=== PATIENT | male | born 1950 | race Caucasian/White ===

== ENCOUNTER → 2016-09-28 | Outpatient (CLI) | payer MEDICARE ==
--- NOTE | 2016-09-28 21:01 | MR ---
EXAMINATION TYPE: MR knee RT wo con DATE OF EXAM: 09/28/2016 COMPARISON: NONE HISTORY: Right knee pain, M 25.561 TECHNIQUE: Multiplanar, multisequence imaging of the right knee is performed without IV contrast. FINDINGS: MEDIAL MENISCUS: Abnormal increased signal is present within the posterior horn of the medial meniscu s, the meniscus appears attenuated, linear increased signal extends to the articular surface at the p osterior horn and body. LATERAL MENISCUS: Intact CRUCIATE LIGAMENTS: Some increased signal is present within the distribution of the anterior cruciate ligament which could be due to strain or partial tear in the posterior cruciate ligament is intact COLLATERAL LIGAMENTS: The medial collateral ligament and lateral collateral ligament complex are inta ct and unremarkable. EXTENSOR MECHANISM: Visualized quadriceps and patellar tendons are intact. EFFUSION: No significant suprapatellar joint effusion. POPLITEAL CYST: Small semimembranosus gastrocnemius cyst is present, cystic fluid posterior to the p roximal tibia medially could be due to small ganglion cyst, possible meniscal cyst at the posterior a spect of the posterior horn of the medial meniscus TRICOMPARTMENT SPACES: Joint space loss is greatest in the medial compartment CARTILAGE: Grade III chondromalacia present in the medial compartment, grade 2 to grade III chondroma lacia posterior patella BONE MARROW SIGNAL: No focal abnormal marrow signal is appreciated. OTHER: Subcutaneous edema changes are present. Some fluid signal present near the pes anserine compl ex possibly due to some local inflammatory change or bursitis. IMPRESSION: Osteoarthritis. Tear of the posterior horn of the medial meniscus. Additional findings above.
== END | disposition home or self-care (01) ==
LOC: RADMRIMAIN 18:36
PROVIDERS: ATTEND Family Medicine
DX: S83.241A Other tear of medial meniscus, current injury, right knee, initial encounter (principal); M17.11 Unilateral primary osteoarthritis, right knee

== ENCOUNTER → 2017-12-19 | Outpatient (CLI) | payer MEDICARE | END | disposition home or self-care (01) | LOC: LABWHC1 16:55 | PROVIDERS: ATTEND Urology | DX: C61 Malignant neoplasm of prostate (principal) | CPT/HCPCS: 36415; 84153 ==

== ENCOUNTER → 2018-06-17 | Outpatient (CLI) | payer MEDICARE | END | disposition home or self-care (01) | LOC: LABWHC1 12:24 | PROVIDERS: ATTEND Urology | DX: C61 Malignant neoplasm of prostate (principal) | CPT/HCPCS: 36415; 84153 ==

== ENCOUNTER → 2019-01-14 | Outpatient (CLI) | payer MEDICARE ==
[2019-01-14 17:48] LABS: T4, Free (Free Thyroxine) 1.2 ng/dL (0.80-1.80)
== END ==
LOC: LABWHC1 09:38
PROVIDERS: ATTEND Internal Medicine
DX: C61 Malignant neoplasm of prostate (principal); C73 Malignant neoplasm of thyroid gland
CPT/HCPCS: 36415; 84153; 84432; 84439; 84443; 86800

== ENCOUNTER → 2019-07-14 | Outpatient (CLI) | payer MEDICARE ==
[2019-07-14 17:42] LABS: T4, Free (Free Thyroxine) 1.8 ng/dL (0.80-1.80)
== END | disposition home or self-care (01) ==
LOC: LABWHC1 10:08
PROVIDERS: ATTEND Internal Medicine
DX: E89.0 Postprocedural hypothyroidism (principal)
CPT/HCPCS: 36415; 84439; 84443

== ENCOUNTER → 2020-01-18 | Outpatient (CLI) | payer MEDICARE | END | disposition home or self-care (01) | LOC: LABWHC1 11:58 | PROVIDERS: ATTEND Urology | DX: C61 Malignant neoplasm of prostate (principal) | CPT/HCPCS: 36415; 84153 ==

== ENCOUNTER → 2020-02-01 | Outpatient (CLI) | payer MEDICARE ==
[2020-02-01 11:51] LABS: Basophils % (A) 0 %; Eosinophils # (A) 0.1 k/uL (0-0.7); Eosinophils % (A) 3 %; HCT 48.1 % (39.0-53.0); HGB 15.6 gm/dL (13.0-17.5); Lymphocytes % (A) 26 %; MCHC 32.5 g/dL (31.0-37.0); MCV 92.2 fL (80.0-100.0); Monocytes # (A) 0.4 k/uL (0-1.0); Monocytes % (A) 10 %; Neutrophils # (A) 2.3 k/uL (1.3-7.7); Neutrophils % (A) 58 %; Platelet Count 212 k/uL (150-450); RBC 5.21 m/uL (4.30-5.90); RDW 12.8 % (11.5-15.5); WBC 3.9 k/uL (3.8-10.6)
[2020-02-01 19:11] LABS: Albumin 4.2 g/dL (3.80-4.90); Albumin/Globulin Ratio 1.91 (1.60-3.17); Anion Gap 2.4 mmol/L (4.00-12.00); Calcium 9.2 mg/dL (8.7-10.3); Carbon Dioxide 30.6 mmol/L (21.6-31.8); Chol/HDL Ratio 4.7; Globulin 2.2 g/dL (1.6-3.3); LDL Cholesterol,Calculated 134.6 mg/dL (0.0-131.0); Non-African American GFR(CKD) 75.9 (60.0-200.0); Potassium 4.7 mmol/L (3.5-5.5); Total Bilirubin 0.5 mg/dL (0.3-1.2); Total Protein 6.4 g/dL (6.2-8.2); VLDL Calculation 24.4 mg/dL (5.00-40.00)
[2020-02-01 19:18] LABS: T4, Free (Free Thyroxine) 2.1 ng/dL (0.80-1.80)
== END | disposition home or self-care (01) ==
LOC: LABWHC1 10:49
PROVIDERS: ATTEND Physician Assistant
DX: Z00.00 Encounter for general adult medical examination without abnormal findings (principal); E78.00 Pure hypercholesterolemia, unspecified; E03.9 Hypothyroidism, unspecified
CPT/HCPCS: 36415; 80053; 80061; 84439; 84443; 84481; 85025

== ENCOUNTER → 2020-07-29 | Outpatient (CLI) | payer MEDICARE ==
[2020-07-29 17:12] LABS: T4, Free (Free Thyroxine) 1.4 ng/dL (0.80-1.80)
== END | disposition home or self-care (01) ==
LOC: LABWHC1 09:59
PROVIDERS: ATTEND Internal Medicine
DX: C73 Malignant neoplasm of thyroid gland (principal); E89.0 Postprocedural hypothyroidism; E55.9 Vitamin D deficiency, unspecified
CPT/HCPCS: 36415; 82306; 84432; 84439; 84443; 86800

== ENCOUNTER 2020-08-12 16:59 | Observation (INO) | payer MEDICARE ==
[2020-08-12] MEDS ORDERED: NITROGLYCERIN OINT 1 INCH/GM PACKET TOPICAL STA (17:21)
[2020-08-12] MEDS ORDERED: METOCLOPRAMIDE 5 MG/ML 2 ML VIAL IVP STA (17:21)
[2020-08-12] MEDS ORDERED: ASPIRIN 81 MG PO STA (17:21)
--- NOTE | 2020-08-12 17:24 | ED ---
General Adult HPI - General Chief complaint: Chest Pain Stated complaint: Chest pain Time Seen by Provider: 08/12/20 17:03 Source: patient, EMS, RN notes reviewed Mode of arrival: EMS Limitations: no limitations - History of Present Illness Initial comments: Patient is a pleasant 70-year-old male presenting to the emergency Department with complaints of chest discomfort. Onset of symptoms was yesterday evening. Discomfort is mild and described as an ache. No associated dyspnea. Patient has had some nausea. Patient was a little bit sweaty earlier. No history of similar symptoms previously. No radiation of pain. No leg pain or leg swelling. - Related Data Home Medications Medication Instructions Recorded Confirmed Levothyroxine Sodium [Synthroid] 150 mcg PO DAILY 08/12/20 08/12/20 Naproxen Sodium [Aleve] 220 mg PO BID PRN 08/12/20 08/12/20 Allergies Allergy/AdvReac Type Severity Reaction Status Date / Time No Known Allergies Allergy Verified 08/12/20 18:24 Review of Systems ROS Statement: Those systems with pertinent positive or pertinent negative responses have been documented in the HPI. ROS Other: All systems not noted in ROS Statement are negative. Constitutional: Denies: fever Eyes: Denies: eye pain ENT: Denies: ear pain Respiratory: Denies: cough Cardiovascular: Reports: chest pain Endocrine: Denies: fatigue Gastrointestinal: Reports: nausea. Denies: abdominal pain Genitourinary: Denies: dysuria Musculoskeletal: Denies: back pain Skin: Denies: rash Neurological: Reports: headache Past Medical History Past Medical History: Cancer, Osteoarthritis (OA) Additional Past Medical History / Comment(s): wound left leg History of Any Multi-Drug Resistant Organisms: None Reported Past Surgical History: Joint Replacement Additional Past Surgical History / Comment(s): thyroidectomy for ca of the thyroid Past Anesthesia/Blood Transfusion Reactions: No Reported Reaction Past Psychological History: No Psychological Hx Reported Smoking Status: Never smoker Past Alcohol Use History: Occasional Past Drug Use History: None Reported - Past Family History Mother Family Medical History: No Reported History Father Family Medical History: Diabetes Mellitus General Exam Limitations: no limitations General appearance: alert, in no apparent distress Head exam: Present: atraumatic Eye exam: Present: normal appearance, PERRL, EOMI ENT exam: Present: normal oropharynx Neck exam: Present: normal inspection Respiratory exam: Present: normal lung sounds bilaterally Cardiovascular Exam: Present: regular rate, normal rhythm Expanded Peripheral pulses: 2+: Radial (R), Radial (L), Dorsalis Pedis (R), Dorsalis Pedis (L) GI/Abdominal exam: Present: soft. Absent: tenderness Extremities exam: Present: normal inspection. Absent: pedal edema, calf tenderness Neurological exam: Present: alert Psychiatric exam: Present: normal affect, normal mood Skin exam: Present: normal color Course Vital Signs 08/12/20 08/12/20 08/12/20 17:02 18:41 18:47 Temperature 98.0 F Pulse Rate 64 59 L 59 L Respiratory 16 16 16 Rate Blood Pressure 161/65 121/84 128/70 O2 Sat by Pulse 97 94 L 95 Oximetry EKG Findings - EKG Comments: EKG Findings:: Normal sinus rhythm with rate of 64. OH 194. QRS 94. QT 400. QTc 412. Normal axis. Normal QRS. No acute ST change. Medical Decision Making - Medical Decision Making Patient reevaluated and improved. Discomfort mild at this time. Patient and family updated on results and plan. Case was discussed with Dr. Mcarthur, covering for Dr. Olsen, who will admit. - Lab Data Result diagrams: 08/12/20 17:28 08/12/20 17:28 Lab Results 08/12/20 08/12/20 08/12/20 Range/Units 17:28 17:28 17:28 WBC 5.1 (3.8-10.6) k/uL RBC 4.81 (4.30-5.90) m/uL Hgb 11.5 L (13.0-17.5) gm/dL Hct 44.4 (39.0-53.0) % MCV 92.3 (80.0-100.0) fL MCH 23.8 L (25.0-35.0) pg MCHC 25.8 L (31.0-37.0) g/dL RDW 13.1 (11.5-15.5) % Plt Count 192 (150-450) k/uL MPV 7.3 Neutrophils % 61 % Lymphocytes % 24 % Monocytes % 9 % Eosinophils % 2 % Basophils % 1 % Neutrophils # 3.2 (1.3-7.7) k/uL Lymphocytes # 1.2 (1.0-4.8) k/uL Monocytes # 0.5 (0-1.0) k/uL Eosinophils # 0.1 (0-0.7) k/uL Basophils # 0.0 (0-0.2) k/uL PT 10.2 (9.0-12.0) sec INR 0.9 (<1.2) APTT 22.7 (22.0-30.0) sec Sodium 137 (137-145) mmol/L Potassium 4.3 (3.5-5.1) mmol/L Chloride 104 (98-107) mmol/L Carbon Dioxide 24 (22-30) mmol/L Anion Gap 9 mmol/L BUN 19 (9-20) mg/dL Creatinine 0.82 (0.66-1.25) mg/dL Est GFR (CKD-EPI)AfAm >90 (>60 ml/min/1.73 sqM) Est GFR (CKD-EPI)NonAf 89 (>60 ml/min/1.73 sqM) Glucose 91 (74-99) mg/dL Calcium 9.3 (8.4-10.2) mg/dL Magnesium 2.0 (1.6-2.3) mg/dL Total Bilirubin 0.5 (0.2-1.3) mg/dL AST 32 (17-59) U/L ALT 36 (4-49) U/L Alkaline Phosphatase 47 (38-126) U/L Troponin I (0.000-0.034) ng/mL Total Protein 7.2 (6.3-8.2) g/dL Albumin 4.3 (3.5-5.0) g/dL 08/12/20 Range/Units 17:28 WBC (3.8-10.6) k/uL RBC (4.30-5.90) m/uL Hgb (13.0-17.5) gm/dL Hct (39.0-53.0) % MCV (80.0-100.0) fL MCH (25.0-35.0) pg MCHC (31.0-37.0) g/dL RDW (11.5-15.5) % Plt Count (150-450) k/uL MPV Neutrophils % % Lymphocytes % % Monocytes % % Eosinophils % % Basophils % % Neutrophils # (1.3-7.7) k/uL Lymphocytes # (1.0-4.8) k/uL Monocytes # (0-1.0) k/uL Eosinophils # (0-0.7) k/uL Basophils # (0-0.2) k/uL PT (9.0-12.0) sec INR (<1.2) APTT (22.0-30.0) sec Sodium (137-145) mmol/L Potassium (3.5-5.1) mmol/L Chloride (98-107) mmol/L Carbon Dioxide (22-30) mmol/L Anion Gap mmol/L BUN (9-20) mg/dL Creatinine (0.66-1.25) mg/dL Est GFR (CKD-EPI)AfAm (>60 ml/min/1.73 sqM) Est GFR (CKD-EPI)NonAf (>60 ml/min/1.73 sqM) Glucose (74-99) mg/dL Calcium (8.4-10.2) mg/dL Magnesium (1.6-2.3) mg/dL Total Bilirubin (0.2-1.3) mg/dL AST (17-59) U/L ALT (4-49) U/L Alkaline Phosphatase (38-126) U/L Troponin I <0.012 (0.000-0.034) ng/mL Total Protein (6.3-8.2) g/dL Albumin (3.5-5.0) g/dL - Radiology Data Radiology results: report reviewed (Computed tomography scan of the brain shows no acute hemorrhage, shift or mass effect. Atrophy.), image reviewed Disposition Clinical Impression: Chest pain Disposition: ADMITTED IP TO THIS HOSP Is patient prescribed a controlled substance at d/c from ED?: No Referrals: Yoel Olsen MD [Primary Care Provider] - 1-2 days Decision Time: 19:35
[2020-08-12 17:38] LABS: Basophils % (A) 1 %; Eosinophils # (A) 0.1 k/uL (0-0.7); Eosinophils % (A) 2 %; HCT 44.4 % (39.0-53.0); HGB 11.5 gm/dL (13.0-17.5); Lymphocytes # (A) 1.2 k/uL (1.0-4.8); Lymphocytes % (A) 24 %; MCH 23.8 pg (25.0-35.0); MCHC 25.8 g/dL (31.0-37.0); MCV 92.3 fL (80.0-100.0); Mean Platelet Volume 7.3; Monocytes # (A) 0.5 k/uL (0-1.0); Monocytes % (A) 9 %; Neutrophils # (A) 3.2 k/uL (1.3-7.7); Neutrophils % (A) 61 %; Platelet Count 192 k/uL (150-450); RBC 4.81 m/uL (4.30-5.90); RDW 13.1 % (11.5-15.5); WBC 5.1 k/uL (3.8-10.6)
[2020-08-12 17:50] LABS: ALT 36 U/L (4-49); AST 32 U/L (17-59); African American GFR (CKD) >90 (>60 ml/min/1.73 sqM); Albumin 4.3 g/dL (3.5-5.0); Alkaline Phosphatase 47 U/L (38-126); Anion Gap 9 mmol/L; Blood Urea Nitrogen 19 mg/dL (9-20); Calcium 9.3 mg/dL (8.4-10.2); Carbon Dioxide 24 mmol/L (22-30); Chloride 104 mmol/L (98-107); Glucose 91 mg/dL (74-99); Non-African American GFR(CKD) 89 (>60 ml/min/1.73 sqM); Potassium 4.3 mmol/L (3.5-5.1); Sodium 137 mmol/L (137-145); Total Bilirubin 0.5 mg/dL (0.2-1.3); Total Protein 7.2 g/dL (6.3-8.2)
[2020-08-12 17:55] LABS: INR 0.9 (<1.2); Partial Thromboplastin Time 22.7 sec (22.0-30.0); Prothrombin Time 10.2 sec (9.0-12.0)
--- NOTE | 2020-08-12 19:11 | CT ---
EXAMINATION TYPE: CT brain wo con DATE OF EXAM: 08/12/2020 COMPARISON: No prior CT at resident for comparison HISTORY: 70-year-old male with headache nausea. No injury. TECHNIQUE: CT scan of the head was performed without contrast. CT DLP: 1143.4 mGycm Automated exposure control for dose reduction was used. FINDINGS: No evidence of acute intracranial hemorrhage, midline shift or mass effect. Malik-white matter differentiation is preserved. Posterior fossa is acutely unremarkable. There is brain volume atrophy. There are microangiopathic changes and tiny by lateral basal ganglia lacunar infarcts. There is mucosal thickening in the ethmoidal and sphenoid sinuses. Mastoid air cells are adequately e valuated. No acute orbital or osseous abnormality. IMPRESSION: NO ACUTE INTRACRANIAL HEMORRHAGE, MIDLINE SHIFT OR MASS EFFECT. MICROANGIOPATHIC CHANGES AND TINY BILATERAL BASAL GANGLIA LACUNAR INFARCTS. BRAIN VOLUME ATROPHY. SOFT TISSUE THICKENING IN THE PARANASAL SINUSES COULD BE ON THE BASIS OF CAUSAL SINUS DISEASE.
[2020-08-12] MEDS ORDERED: NITROGLYCERIN SL TABS 0.4 MG TAB SUBLINGUAL PRN (19:36)
--- NOTE | 2020-08-12 20:39 | XR ---
EXAMINATION TYPE: XR chest 2V DATE OF EXAM: 08/12/2020 COMPARISON: NONE HISTORY: 70-year-old male with chest pain TECHNIQUE: Frontal and lateral views of the chest are obtained. FINDINGS: Few nodular opacities are demonstrated in the lung bases. The interstitium is mildly prominent. No pneumothorax or pleural effusion. Cardiomediastinal silhouette is within normal limit. No acute osseous abnormality. IMPRESSION: 1. Nodular opacities in the lung bases the larger nodule measures 1.1 cm in the left lower lobe. Ches t CT with contrast recommended could be performed on outpatient basis. 2. Mild prominence of the interstitium could be on the basis of atypical infection, inflammation.
[2020-08-12] MEDS ORDERED: HYDROcodone/APAP 5-325MG 1 EACH TAB PO PRN (21:51)
--- NOTE | 2020-08-12 23:11 | P.HPIM ---
History of Present Illness H&P Date: 08/12/20 Chief Complaint: Chest pain 70-year-old male with hypothyroidism Patient comes in for right-sided chest pain. 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 He started feeling right-sided chest pain at night not associated with any dizziness lightheadedness nausea vomiting or shortness of breath no excessive sweating or palpitations. He had a rough night all night and then in the morning pain persisted not related to any activity again no associated other symptoms but eventually he decided to come in for evaluation concerned about his heart. He otherwise denies any anginal symptoms denies any limitations of his activity by any chest pain or shortness of breath at baseline. Patient denies having any cardiac workup in the past he doesn't recall having any stress test or left heart cath Patient also reported restless leg toward the late evening that bothers him in preventing him from getting good night sleep. He never seeks medical attention for this been going on for couple months. Of note he does have acute anemia which is new compared to his baseline blood work from 6 months ago he otherwise denies any GI bleeding at this time denies any melena. He claims that he had regular colonoscopies in usually they find benign polyps and he gets those every 5 years. Patient also reported history of hypothyroid for which his Synthroid been adjusted by his doctors he went on 125 g for couple months and then now switched back to 150 which is been on its before that he did some thyroid function tests few days ago and his TSH was high still within normal limits however due to his history of thyroid cancer that should be closer to 0 so his doctor has adjusted his thyroid hormone and will follow up outpatient Patient also reported some new onset headache and he claims that he never gets headaches this bad however he denies any associated focal neuro deficits. He had a hectic computed tomography scan done in the ED which suggested microangiop athic disease and tiny possible lacunar infarcts in basal ganglia he again denies any nausea vomiting or any blurry vision he denies any other focal neuro deficits he claims that his headache has resolved now Review of Systems Pertinent positives as noted in HPI. All other systems were reviewed and are negative Past Medical History Past Medical History: Cancer Additional Past Medical History / Comment(s): Hypothyroid, history of thyroid cancer History of Any Multi-Drug Resistant Organisms: None Reported Past Surgical History: Joint Replacement Additional Past Surgical History / Comment(s): thyroidectomy for ca of the thyroid Past Anesthesia/Blood Transfusion Reactions: No Reported Reaction Past Psychological History: No Psychological Hx Reported Smoking Status: Never smoker Past Alcohol Use History: Occasional Past Drug Use History: None Reported - Past Family History Mother Family Medical History: No Reported History Father Family Medical History: Diabetes Mellitus Medications and Allergies Home Medications Medication Instructions Recorded Confirmed Type Levothyroxine Sodium [Synthroid] 150 mcg PO DAILY 08/12/20 08/12/20 History Naproxen Sodium [Aleve] 220 mg PO BID PRN 08/12/20 08/12/20 History Allergies Allergy/AdvReac Type Severity Reaction Status Date / Time No Known Allergies Allergy Verified 08/12/20 18:24 Physical Exam Vitals: Vital Signs Temp Pulse Resp BP Pulse Ox 08/12/20 18:47 59 L 16 128/70 95 08/12/20 18:41 59 L 16 121/84 94 L 08/12/20 17:02 98.0 F 64 16 161/65 97 Intake and Output 08/12/20 08/12/20 08/12/20 06:59 14:59 22:59 Other: Weight 86.636 kg Constitutional: No acute distress, conversant, pleasant Eyes: Anicteric sclerae, moist conjunctiva, Pupils equal round reactive to light ENMT: NC/AT Oropharynx clear, no erythema, or exudates Neck: Supple, FROM, no masses, or JVD No carotid bruits No thyromegaly Lungs: Clear to auscultation Clear to percussion Normal respiratory effort, no accessory muscle use Cardiovascular: Heart regular in rate and rhythm, No murmurs, gallops, or rubs No peripheral edema Abdominal: Soft Nontender, no guarding, rebound or rigidity Abdomen moving with respiration Normoactive bowel sounds No hepatomegaly, No splenomegaly No palpable mass No abdominal wall hernia noted Skin: Normal temperature, tone, texture, turgor No induration No subcutaneous nodules multiple skin tags, blisters over face and forearm, 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 Extremities: No digital cyanosis No clubbing Pedal pulses intact and symmetrical Radial pulses intact and symmetrical No calf tenderness Psychiatric: Alert and oriented to person, place and time Appropriate affect fair judgement Neuro Muscles Strength 5/5 in all 4 extremities Sensation to light touch grossly present throughout Cranial nerves II-XII grossly intact No focal sensory deficits Lymphatics: no palpable cervical or supraclavicular , or inguinal lymph nodes Results CBC & Chem 7: 08/12/20 17:28 08/12/20 17:28 Labs: Abnormal Lab Results - Last 24 Hours (Table) 08/12/20 Range/Units 17:28 Hgb 11.5 L (13.0-17.5) gm/dL MCH 23.8 L (25.0-35.0) pg MCHC 25.8 L (31.0-37.0) g/dL Thrombosis Risk Factor Assmnt - Choose All That Apply Each Risk Factor Represents 2 Points: Age 61-74 years Thrombosis Risk Factor Assessment Total Risk Factor Score: 2 Thrombosis Risk Factor Assessment Level: Low Risk Assessment and Plan Assessment: Atypical chest pain Trend troponins Cardiac monitoring Monitor vital signs Nitro for chest pain Continue aspirin and statin Cardiology consult EKG no acute ST changes Restless leg syndrome Acute anemia Patient denies any GI bleeding Check iron studies and ferritin A ferritin less than 75 consider iron replacement to treat his anemia and restless leg syndrome Ferritin is more than 75 will defer to outpatient evaluation options to treat his restless leg syndrome could be Requip, [place], gabapentin, among others. Pros and cons should be discussed with the patient Patient claims to be up-to-date on regular colonoscopies no history of malignancy. He reports history of multiple polyps usually benign Hypothyroidism with history of thyroid cancer TSH is within normal limits however is elevated for his history of thyroid cancer, goal usually is close to 0 Patient Synthroid was adjusted by his primary care physician up to 150 g continue to follow up outpatient Headache currently resolved no focal neuro deficits Incidental finding of tiny lacunar infarct in basal ganglia on computed tomography scan of the head Await neuro consult Neurochecks every 2 hours CODE STATUS: Full code DVT prophylaxis: Mechanical Discussed with: Patient, ER, RN Anticipated length of stay less than than [address]: Home A total of 75 minutes was spent on the care of this complex patient more than 50% of the time was spent in counseling and care coordination.
[2020-08-13] MEDS ORDERED: HEPARIN SODIUM,PORCINE/PF 5,000 UNIT/0.5 ML SYRINGE SQ SCH
[2020-08-13] MEDS: NITROGLYCERIN OINT 1 INCH/GM PACKET TOPICAL SCH ×2 (01:58→05:10)
[2020-08-13] MEDS ORDERED: LEVOTHYROXINE 75 MCG TAB PO SCH (06:30)
[2020-08-13 07:49] VITALS: RESP 18
[2020-08-13] MEDS ORDERED: ASPIRIN 325 MG TAB PO SCH (09:00)
[2020-08-13] MEDS ORDERED: ASPIRIN 81 MG PO SCH (09:00)
--- NOTE | 2020-08-13 09:26 | CONS ---
CONSULTATION Mr. Damon is a 70-year-old male with no prior documented history of coronary artery disease who presented to the emergency room with symptoms of chest discomfort yesterday. He was splitting wood and subsequently started complaining of right-sided chest discomfort. The discomfort has some positional pattern and respirophasic pattern to it, but he had a headache with and came into the emergency room and subsequently admitted. He is pain free at this time. He is usually active physically and he has no exertional chest pain. He denies any dizziness or palpitation. He denies any PND, orthopnea, or peripheral edema. He has no prior documented history of cardiac disease nor cardiac workup. He has no history of hypertension, hyperlipidemia, he is nondiabetic, nonsmoker. MEDICATION: At home included Aleve and Synthroid 0.15 mg daily. REVIEW OF SYSTEMS: RESPIRATORY SYSTEM: He has no documented history of asthma, emphysema or bronchitis. GI SYSTEM: No recent GI bleeding. No peptic ulcer disease. SYSTEM: No dysuria or hematuria. NERVOUS SYSTEM: No history of stroke or seizure. PHYSICAL EXAMINATION: GENERAL: A 70-year-old male, alert, oriented, no apparent distress. VITAL SIGNS: Blood pressure 120/60 with a heart in the 60s. HEENT: Head is normocephalic, eyes; sclerae anicteric. NECK: Good carotid upstroke, no bruit, no jugular venous distention. LUNGS: Clear to auscultation. HEART: Regular rate and rhythm, S1 and S2, no S3 or S4, no murmur or rub. ABDOMEN: Soft and nontender, positive bowel wounds, no organomegaly. EXTREMITIES: No edema. Intact distal pulses. LAB DATA: Lab data revealed troponin less than 0.012 for 3 samples. BUN creatinine 19 and 0.8, potassium 4.3, hemoglobin of 11.5. EKG revealed a sinus mechanism, normal axis and intervals. No acute changes. Chest x-ray shows no acute infiltrate with a nodular opacity at the lung base measuring 1.1 cm. He had a brain CT done that revealed no acute hemorrhage with microangiopathic changes and tiny bilateral basal ganglia lacunar infarct. IMPRESSION: 1. Chest discomfort. Has atypical features for ischemic heart disease. Probably musculoskeletal in etiology. 2. Small nodule on the x-ray in a patient who is a nonsmoker. RECOMMENDATION: From the cardiac standpoint, I will stop the nitroglycerin paste. I will obtain echocardiogram with Doppler. If there is no segmental wall motion abnormality, he should be able to be discharged home and obtain a stress test as an outpatient. I have discussed those findings with the patient and he is in full understanding and agreement. Thank you for this consult. We will follow with you. SEBASTIEN / BLAKE: [id number] /
[2020-08-13 10:06] LABS: Chol/HDL Ratio 5.17; LDL Cholesterol,Calculated 156.8 mg/dL (0.0-131.0); VLDL Calculation 39.2 mg/dL (5.00-40.00)
--- NOTE | 2020-08-13 11:38 | P.CNNES ---
History of Present Illness Consult date: 08/13/20 History of Present Illness: The patient is a 70-year-old male who is seen in neurologic consultation on August 13, 2020, via teleneurology. The patient is being seen in neurologic consultation because of abnormalities on his CT scan of the brain. 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 The patient reports no neurological symptoms. He is not aware that he has had any type of cerebral ischemia. The patient reports coming into the emergency department because of "pulled, strained muscle across my heart". Patient reports that he had been doing a lot of heavy work the day prior to the onset of the symptoms. He reports feeling pain on the right side of his chest. He then began to experience a severe headache. He says that is very uncommon for him to the headache. He denies any weakness in his arms or legs. He does report nausea associated with headache. There is no vomiting. There is no change in vision or speech. She denies shortness of breath. He denies radiation of the pain into his arms. There is no weakness or paresthesias. No difficulty swallowing. The patient states that his symptoms lasted for approximately 4 hours. He had no difficulty with ambulation. He describes the pain as an "irritable" sensation. It was then 9, on a scale from 0-10. The patient denies a history of similar symptoms. He denies a history of stroke. Past Medical History Past Medical History: Cancer Additional Past Medical History / Comment(s): Hypothyroid, history of thyroid cancer History of Any Multi-Drug Resistant Organisms: None Reported Past Surgical History: Joint Replacement Additional Past Surgical History / Comment(s): thyroidectomy for ca of the thyroid Past Anesthesia/Blood Transfusion Reactions: No Reported Reaction Past Psychological History: No Psychological Hx Reported Smoking Status: Never smoker Past Alcohol Use History: Occasional Past Drug Use History: None Reported - Past Family History Mother Family Medical History: No Reported History Father Family Medical History: Diabetes Mellitus Medications and Allergies Home Medications Medication Instructions Recorded Confirmed Type Levothyroxine Sodium [Synthroid] 150 mcg PO DAILY 08/12/20 08/12/20 History Naproxen Sodium [Aleve] 220 mg PO BID PRN 08/12/20 08/12/20 History Allergies Allergy/AdvReac Type Severity Reaction Status Date / Time No Known Allergies Allergy Verified 08/12/20 18:24 Physical Examination - Vital Signs Vital Signs: Vital Signs Temp Pulse Pulse Resp BP BP Pulse Ox 08/13/20 07:50 54 L 18 08/13/20 07:00 97.3 F L 54 L 18 94/56 99 08/13/20 02:00 97.6 F 61 16 120/63 95 08/12/20 22:25 98.8 F 77 17 111/77 97 08/12/20 18:47 59 L 16 128/70 95 08/12/20 18:41 59 L 16 121/84 94 L 08/12/20 17:02 98.0 F 64 16 161/65 97 Intake and Output 08/12/20 08/13/20 08/13/20 22:59 06:59 14:59 Other: Voiding Method Toilet Toilet # Voids 2 1 1 Weight 86.636 kg Gen.: The patient is reclining in the bed. He is well-nourished, well-developed and in no acute distress. HEENT: Head is atraumatic, normocephalic. Fundus not visualized. There is no scleral icterus. Mucous membranes are moist. Neck: Supple without carotid bruits Heart: Regular rate and rhythm Extremities: Without edema Neurological examination Mental status: The patient is awake, alert and oriented 3. His speech is clear. There is no dysarthria or aphasia. Cranial nerves: Pupils are equal at 3 mm and briskly reactive. Visual chung are full to confrontation. Extraocular movements are intact. There is no nystagmus. Facial sensations intact. There is no facial asymmetry. Hearing is grossly intact. Uvula and palate are midline. Shoulder shrug is symmetric. Tongue protrudes midline. Motor: Strength is 5/5 throughout Sensation: Light touch sensation is intact throughout. There is no extinction with double simultaneous stimulation. Coordination: Finger to nose and rapid alternating movements are intact Deep tendon reflexes: 2+/4+ in the bilateral upper extremities. Lower extremity reflexes 1+/4+. Gait: Not assessed Results - Laboratory Findings CBC and BMP: 08/12/20 17:28 08/12/20 17:28 Abnormal Lab Findings: Abnormal Labs 08/12/20 17:28 Hgb 11.5 L MCH 23.8 L MCHC 25.8 L Assessment and Plan Assessment: 1. The patient has a normal neurological examination. CT scan of the brain images have been reviewed and I am not convinced that there is evidence of ischemia in the basal ganglia region. There is certainly no evidence of hemorrhage. The patient's presenting symptoms are more consistent with cardiac or muscle origin. There are no focal or lateralizing signs on examination or with the history. Plan: 1. I advised patient to restart aspirin 81 mg daily 2. Statin should be started for stroke prevention and hyperlipidemia 3. I advised the patient follow up with his primary care physician and consider MRI of the brain as an outpatient. 4. The patient is neurologically stable for discharge Time with Patient: Greater than 30 (spent 40 minutes with patient via teleneurology)
--- NOTE | 2020-08-13 12:06 | ECHOF ---
Referral Reason:cp MEASUREMENTS -------- HEIGHT: 182.9 cm WEIGHT: 86.6 kg BP: RVIDd: 3.2 cm (< 3.3) IVSd: 1.3 cm (0.6 - 1.1) LVIDd: 4.4 cm (3.9 - 5.3) LVPWd: 1.2 cm (0.6 - 1.1) IVSs: 1.8 cm LVIDs: 2.6 cm LVPWs: 2.0 cm LA Diam: 3.5 cm (2.7 - 3.8) LAESV Index (A-L): 16.57 ml/m Ao Diam: 3.4 cm (2.0 - 3.7) AV Cusp: 2.7 cm (1.5 - 2.6) MV EXCURSION: 19.848 mm (> 18.000) MV EF SLOPE: 110 mm/s (70 - 150) EPSS: 0.2 cm MV E Brijesh: 0.77 m/s MV DecT: 288 ms MV A Brijesh: 0.90 m/s MV E/A Ratio: 0.86 RAP: 5.00 mmHg RVSP: 22.41 mmHg FINDINGS -------- Sinus rhythm. This was a technically adequate study. The left ventricular size is normal. There is mild concentric left ventricular hypertrophy. Overa ll left ventricular systolic function is normal with, an EF between 55 - 60 %. The diastolic fillin g pattern is normal for the age of the patient 9.86. The right ventricle is normal in size. Normal LA size by volume 22+/-6 ml/m2. The right atrial size is normal. Interatrial and interventricular septum intact. Lipomatous Hypertrophy of the atrial septum is pre sent The aortic valve is trileaflet, and appears structurally normal. No aortic stenosis or regurgitation. The mitral valve leaflets are mildly thickened. There is trace mitral regurgitation. The tricuspid valve appears structurally normal. Mild tricuspid regurgitation present. Right vent ricular systolic pressure is normal at < 35 mmHg. Trace/mild (physiologic) pulmonic regurgitation. The aortic root size is normal. The inferior vena cava is mildly dilated. There is no pericardial effusion. CONCLUSIONS -------- 1. The left ventricular size is normal. 2. There is mild concentric left ventricular hypertrophy. 3. Overall left ventricular systolic function is normal with, an EF between 55 - 60 %. 4. Normal LA size by volume 22+/-6 ml/m2. 5. Lipomatous Hypertrophy of the atrial septum is present 6. The aortic valve is trileaflet, and appears structurally normal. No aortic stenosis or regurgitati on. 7. The mitral valve leaflets are mildly thickened. 8. There is trace mitral regurgitation. 9. Mild tricuspid regurgitation present. 10. Trace/mild (physiologic) pulmonic regurgitation. 11. The inferior vena cava is mildly dilated. 12. There is no pericardial effusion. [employer]MER: Rekha Marsh RDCS
[2020-08-13 14:40] VITALS: BP 107/64; PULSE 70; TEMP 97.7
--- NOTE | 2020-08-13 14:45 | P.DS ---
<Margarito Lee - Last Filed: 08/13/20 16:47> Providers Expected date of discharge: 08/13/20 Hospital Course: Discharge Diagnosis: Atypical chest pain, acute coronary event ruled out Headache with findings on CT of tiny bilateral basal ganglia lacunar infarcts Incidental finding on chest x-ray revealing left lower lobe Lung nodules Hypothyroidism Hospital Course: Patient is a 70-year-old male with a past medical history of hypothyroidism. He presented to the hospital on 08/12/20 with a chief complaint of chest pain and headache. Patient underwent evaluation in the emergency department. EKG was completed showing normal sinus rhythm at 64 bpm with no noted T-wave or ST abnormalities. Chest x-ray completed negative for acute cardiopulmonary process however showing nodular opacities in the left lung bases with the largest nodule measuring 1.[address] brain revealed no acute intercranial hemorrhage or mass effect but did reveal microangiopathic changes with reports of tiny bilateral basal ganglia lacunar infarcts with brain volume atrophy. Patient was admitted under our services with consultation to cardiology and neurology. Troponins trended 3 all negative. CBC and CMP unremarkable. Lipid profile did reveal elevated triglycerides of 196.0, elevated total cholesterol of 243, an elevated LDL at 156.8. Patient was seen and fully evaluated by neurology who recommended patient to restart aspirin 81 mg daily as well as atorvastatin 20 mg daily and to follow up outpatient with neurology office for MRI. Patient was also seen and fully evaluated by cardiology and had Echocardiogram completed revealing an ejection fraction of 55-60% with no significant valvular abnormalities and was cleared from cardiac standpoint for discharge home and to follow-up in their office outpatient as they ruled out acute coronary event. Patient's reports of chest pain and headache have resolved. Patient is stable for discharge home. Patient to follow-up with PCP, cardiology, and neurology on outpatient basis. Patient will need a CT with contrast of chest to follow-up with left lower lobe lung nodules and an MRI of brain to follow-up with findings of tiny bilateral basal ganglia lacunar infarcts. Patient discharged home on aspirin and atorvastatin as directed by neurology. Patient seen and examined at bedside. He reports feeling fantastic and ready to go home. Patient denies having any headache, lightheadedness, dizziness, changes in his vision or hearing, tinnitus, sore throat or dysphasia, cough or congestion, chest pain or palpitations, shortness of breath or dyspnea with exer tion, abdominal pain, nausea, vomiting, changes in appetite, changes in urinary or bowel function, or experiencing any numbness/tingling/weakness/swelling of his extremities. Vital signs reviewed and stable. General: Nontoxic, no distress and appears stated age. Derm: Skin warm and dry, normal coloration for ethnicity. Head: Atraumatic, normocephalic and symmetric. Eyes: EOMs intact, no lid lag, and anicteric sclera Mouth: no lip lesions, mucus membranes moist Cardiovascular: regular rate and rhythm with normal S1S2, no murmur, positive posterior tibial pulses bilaterally, and cap refill < 2 seconds. Lungs: Respirations even, regular, and unlabored on room air. Lungs CTA bilaterally, no rhonchi, no rales, no wheezing, and no accessory muscle usage. Abdominal: soft, nontender to palpation, no guarding, no appreciable organomegaly Ext: ROM intact. No gross muscle atrophy, no edema, no contractures Neuro: Speech clear, face symmetrical and CN II-XII grossly intact with no noted focal neuro deficits. GCS 15. Psych: Alert and oriented to person, place, time, and situation. Appropriate and pleasant affect. A total of 45 minutes of time were spent preparing this complex discharge summary. Patient Condition at Discharge: Stable Plan - Discharge Summary Discharge Rx Participant: No New Discharge Prescriptions: New Lidocaine 5% Patch [Lidoderm 5% Patch] 1 patch TOPICAL DAILY #1 box Atorvastatin [Lipitor] 20 mg PO HS 30 Days #30 tab Aspirin 81 mg PO DAILY 30 Days #30 chew Continue Levothyroxine Sodium [Synthroid] 150 mcg PO DAILY Discontinued Naproxen Sodium [Aleve] 220 mg PO BID PRN PRN Reason: Pain Discharge Medication List Levothyroxine Sodium [Synthroid] 150 mcg PO DAILY 08/12/20 [History] Aspirin 81 mg PO DAILY 30 Days #30 chew 08/13/20 [Rx] Atorvastatin [Lipitor] 20 mg PO HS 30 Days #30 tab 08/13/20 [Rx] Lidocaine 5% Patch [Lidoderm 5% Patch] 1 patch TOPICAL DAILY #1 box 08/13/20 [Rx] Follow up Appointment(s)/Referral(s): Jonathan Espinoza MD [STAFF PHYSICIAN] - 1 Week Yoel Olsen MD [Primary Care Provider] - 1-2 days Juliana Khan MD [REFERRING] - 1 Week Patient Instructions/Handouts: Chest Pain (DC) Activity/Diet/Wound Care/Special Instructions: Activity: As tolerated Diet: Heart healthy diet Special Instructions: You are being discharged home at this time. It is important to follow up with your primary care provider Dr. Olsen, cardiology with Dr. Espinoza, as well as neurology with Dr. Khan. Your chest x-ray did reveal nodular findings in your left lower lobe, possibly artifact or inflammation... however it is important to follow-up on an outpatient basis to ensure these resolve and this should be done by having a CT of your chest with contrast. Please take all medications as prescribed without missing any doses. Thank you for allowing us to participate in your care, it was a pleasure having you for our patient. Discharge Disposition: HOME SELF-CARE <Didi Chaidez - Last Filed: 08/13/20 18:01> Providers Date of admission: 08/12/20 19:36 Attending physician: Irene Barahona MD Consults: 08/12/20 19:36 Consult Physician Urgent Consulting Provider: Zeb Urias Consult Reason/Comments: cp Do you want consulting provider notified?: Yes 08/12/20 21:46 Consult Physician Routine Consulting Provider: Mejia Ramírez Consult Reason/Comments: basal ganglia lacunar infarct Do you want consulting provider notified?: Yes Primary care physician: Yoel Olsen Hospital Course: Patient seen and examined independently. Patient was also seen by Margarito Lee NP and case was discussed. I am in agreement with discharge diagnosis and hospital course written above and amended below. Patient and with no questions at this time.
[2020-08-13 15:36] LABS: % Iron Saturation 31.66 (15.00-50.00)
[2020-08-13 15:46] LABS: Ferritin 176.6 ng/mL (22.0-322.0)
[2020-08-13] MEDS ORDERED: ATORVASTATIN 20 MG TAB PO SCH (21:00)
== END 2020-08-13 16:00 | disposition home or self-care (01) ==
LOC: EC 16:59 → 6NMEDSUR 19:36
PROVIDERS: ADMIT Internal Medicine; ATTEND Internal Medicine
DX: R07.89 Other chest pain (principal); G25.81 Restless legs syndrome; R51.9 Headache, unspecified; D64.9 Anemia, unspecified; I63.81 Other cerebral infarction due to occlusion or stenosis of small artery; R91.8 Other nonspecific abnormal finding of lung field; E78.5 Hyperlipidemia, unspecified; E89.0 Postprocedural hypothyroidism; M19.90 Unspecified osteoarthritis, unspecified site; Z79.890 Hormone replacement therapy; Z79.82 Long term (current) use of aspirin; Z79.899 Other long term (current) drug therapy; Z83.3 Family history of diabetes mellitus; Z85.850 Personal history of malignant neoplasm of thyroid
CPT/HCPCS: 93005 ×2; 96374; 99285; 36415; 93306; 80061; 80053; 82728; 83540; 83550; 83735; 84484; 85025; 85610; 85730; 71046; 70450; G0378 ×2; J2765

== ENCOUNTER → 2020-10-03 | Outpatient (CLI) | payer MEDICARE ==
[2020-10-03 15:59] LABS: T4, Free (Free Thyroxine) 1.2 ng/dL (0.80-1.80)
== END | disposition home or self-care (01) ==
LOC: LABWHC1 09:25
PROVIDERS: ATTEND Internal Medicine
DX: C73 Malignant neoplasm of thyroid gland (principal); E55.9 Vitamin D deficiency, unspecified; E89.0 Postprocedural hypothyroidism
CPT/HCPCS: 36415; 82306; 84432; 84439; 84443; 86800

== ENCOUNTER → 2021-11-06 | Outpatient (CLI) | payer MEDICARE ==
[2021-11-06 16:22] LABS: T4, Free (Free Thyroxine) 1.8 ng/dL (0.800-1.800); Thyroid Peroxidase Antibodies <9.0 U/mL (0.0-33.0)
== END | disposition home or self-care (01) ==
LOC: LABWHC1 09:32
PROVIDERS: ATTEND Family Medicine
DX: E03.9 Hypothyroidism, unspecified (principal)
CPT/HCPCS: 36415; 84439; 84443; 84480; 86376

== ENCOUNTER 2022-09-24 12:40 | Emergency (ER) | payer MEDICARE ==
[2022-09-24 12:52] VITALS: RESP 18
[2022-09-24] MEDS ORDERED: LIDOCAINE 1% INJ 10MG/ML (20 ML MDV) SQ STA (13:04)
--- NOTE | 2022-09-24 13:39 | ED ---
Wound/Laceration HPI - General Chief Complaint: Wound/Laceration Stated Complaint: rt hand finger laceration Time Seen by Provider: 09/24/22 12:57 Source: patient, RN notes reviewed Mode of arrival: ambulatory Limitations: no limitations - History of Present Illness Initial Comments: This is a pleasant, left hand dominant 72-year-old male got his right thumb caught between 2 pieces of wood when he was using a log splitter. Patient pinched the skin is sustained a laceration. Patient complaining of throbbing pain. Injury occurred just prior to arrival. No other injuries. Up-to-date on tetanus. No history of immunosuppression or diabetes. No headache, no fever or chills, no changes in vision or hearing, no sore throat or difficulty with speech, no neck pain, no chest pain or shortness of breath, no abdominal pain, no nausea or vomiting, no changes in urination or bowel movements, no numbness or tingling,, no skin rashes or lesions. Past medical, surgical, social, and family history reviewed. - Related Data Home Medications Medication Instructions Recorded Confirmed Levothyroxine Sodium [Synthroid] 150 mcg PO DAILY 08/12/20 08/12/20 Previous Rx's Medication Instructions Recorded Aspirin 81 mg PO DAILY 30 Days #30 chew 08/13/20 Atorvastatin [Lipitor] 20 mg PO HS 30 Days #30 tab 08/13/20 Lidocaine 5% Patch [Lidoderm 5% 1 patch TOPICAL DAILY #1 box 08/13/20 Patch] Cephalexin [Keflex] 500 mg PO Q8H #15 cap 09/24/22 Allergies Allergy/AdvReac Type Severity Reaction Status Date / Time No Known Allergies Allergy Verified 09/24/22 12:52 Review of Systems ROS Statement: Those systems with pertinent positive or pertinent negative responses have been documented in the HPI. ROS Other: All systems not noted in ROS Statement are negative. Past Medical History Past Medical History: Cancer Additional Past Medical History / Comment(s): Hypothyroid, history of thyroid cancer History of Any Multi-Drug Resistant Organisms: None Reported Past Surgical History: Joint Replacement Additional Past Surgical History / Comment(s): thyroidectomy for ca of the thyroid Past Anesthesia/Blood Transfusion Reactions: No Reported Reaction Past Psychological History: No Psychological Hx Reported Smoking Status: Never smoker Past Alcohol Use History: Occasional Past Drug Use History: None Reported - Past Family History Mother Family Medical History: No Reported History Father Family Medical History: Diabetes Mellitus General Exam - General Exam Comments Initial Comments: Patient not ill or toxic. Cranial nerves II through XII grossly intact. Alert and oriented 4 Limitations: no limitations General appearance: alert, in no apparent distress Eye exam: Present: normal appearance, EOMI Neck exam: Present: normal inspection Respiratory exam: Present: normal lung sounds bilaterally. Absent: respiratory distress, wheezes, rales, rhonchi, stridor Cardiovascular Exam: Present: regular rate, normal rhythm, normal heart sounds. Absent: systolic murmur, diastolic murmur, rubs, gallop, clicks GI/Abdominal exam: Absent: tenderness Extremities exam: Present: full ROM, tenderness, normal capillary refill, other (Patient has a superficial laceration to the distal aspect of the right thumb. Does not appear to be involved with bony areas or joints. No contamination. Capillary refill less than 2 seconds. Full range of motion at the IP and MCP. Remainder of the phalanges, hand, wrist or the unaffected. Pul). Absent: normal inspection, pedal edema, joint swelling, calf tenderness Course Vital Signs 09/24/22 12:50 Temperature 98.3 F Pulse Rate 74 Respiratory 18 Rate Blood Pressure 132/86 O2 Sat by Pulse 99 Oximetry Procedures - Laceration Laceration #1 Consent Obtained: verbal consent Indication: laceration Site: upper extremity Size (cm): 3 Description: linear Depth: simple, single layer Anesthetic Used: lidocaine 1%, without epi Anesthesia Technique: nerve block (Digital nerve block) Pre-repair: wound explored, irrigated extensively Type of Sutures: nylon Size of Sutures: 5-0 Number of Sutures: 3 Technique: simple, interrupted Patient Tolerated Procedure: well, no complications Medical Decision Making - Medical Decision Making Was pt. sent in by a medical professional or institution? @ -[by , PA, PROOF INSPECTOR, urgent care, hospital, or [facility]] Did you speak to anyone other than the patient for history? @ -[EMS, parent, family, police, friend?] Did you review nursing and triage notes? @ -[agree or disagree, why?] Were old charts reviewed? @ -[outside hosp., previous admissions, EMS record, old EKG, old radiological studies, urgent care reports/EKGs, [facility] records?] Differential Diagnosis? @Differential diagnosis includes but not limited to: Soft tissue injury, laceration, unlikely to be fracture however x-ray will be ordered. Does not appear to be consistent with significant vascular insult. Not consistent with infectious etiology. EKG interpreted by me (3pts min.)? @ -[none] X-rays interpreted by me (1pt min.)? @ Independent x-ray interpretation by me shows no evidence of fracture or dislocation. No foreign body. Radiology interpretation is delayed CT interpreted by me (1pt min.)? @ -[none] U/S interpreted by me (1pt. min.)? @ -[none] What testing was considered but not performed? (CT, X-rays, U/S, labs)? Why? @ [CT, X-rays, U/S, labs? Why?] What meds were considered but not given? Why? @ -[none] Did you discuss the management of the patient with other professionals? @ -No Did you reconcile home meds? @ -[none] Was smoking cessation discussed for >3mins.? @ -[none] Was critical care preformed (if so, how long)? @ -[none] Were there social determinants of health that impacted care today? How? (Homelessness, low income, unemployed, alcoholism, drug addiction, transportation, low edu. Level, literacy, decrease access to med. care, alf, rehab)? @ -None noted Was there de-escalation of care discussed even if they declined? (Discuss DNR or withdrawal of care, Hospice)? @ -[Discuss DNR or withdrawal of care, Hospice?] What co-morbidities impacted this encounter? (DM, HTN, Smoking, COPD, CAD, Cancer, CVA, Hep., AIDS, mental health diagnosis, sleep apnea, morbid obesity)? @ -[DM, HTN, Smoking, COPD, CAD, Cancer, CVA, Hep., AIDS, mental health diagnosis, sleep apnea, morbid obesity?] Was patient admitted / discharged? @ -Stable Undiagnosed new problem with uncertain prognosis? @ -No Drug Therapy requiring intensive monitoring for toxicity (Heparin, Nitro, Insulin, Cardizem)? @ -[none] Were any procedures done? @ -Laceration repair, digital block Diagnosis/symptom? @ -Right thumb laceration initial without complication Acute, or Chronic, or Acute on Chronic? @ -Acute Uncomplicated (without systemic symptoms) or Complicated (systemic symptoms)? @ -Uncomplicated Side effects of treatment? @ -[none] Exacerbation, Progression, or Severe Exacerbation] @ -[no] Poses a threat to life or bodily function? @ -[no] Patient was told to return to the ER for any signs or symptoms worsen. Told to return immediately if any other problems arise. All questions answered. Treatment plan discussed. Patient in agreement Every effort has been made to ensure accuracy of this dictation. However, due to the limitations of electronic medical records and dictation devices, errors in charting still occur. Disposition Clinical Impression: Laceration of right thumb without complication Disposition: HOME SELF-CARE Condition: Good Instructions (If sedation given, give patient instructions): Laceration (ED) Additional Instructions: Wash the wound daily with warm soap and water. Apply a thin layer of Neosporin or triple antibiotic ointment. Keep covered with a Band-Aid or and age. Watch for signs and symptoms of infection. Follow-up in 2 days for wound check if needed. Removal in 10 days. Follow-up with your regular physician as directed. Return to the ER immediately if any symptoms worsen, new symptoms arise, or any other problems develop. Is patient prescribed a controlled substance at d/c from ED?: No Referrals: Yoel Olsen MD [Primary Care Provider] - 09/26/22 (Wound check) Time of Disposition: 13:58
--- NOTE | 2022-09-24 13:45 | XR ---
3 views right thumb. DATE: 09/24/2022. COMPARISON: None available. HISTORY: Laceration. IMPRESSION: No fractures are seen. There is soft tissue swelling seen along the distal aspect of the thumb more prominent on the volar s mac. There does appear to be a focus of subcutaneous emphysema which is compatible with laceration. I nfection would not be excluded. There is significant degenerative joint space narrowing in the first carpometacarpal joint.
[2022-09-24] MEDS ORDERED: BACITRACIN ZINC 500 UNIT/GM OINT 28.4 GM TUBE TOPICAL STA (13:56)
[2022-09-24 14:59] VITALS: BP 136/92; PULSE 80; TEMP 97.8
== END 2022-09-24 15:00 | disposition home or self-care (01) ==
LOC: EC 12:40
DX: S61.011A Laceration without foreign body of right thumb without damage to nail, initial encounter (principal); E03.9 Hypothyroidism, unspecified; Z79.890 Hormone replacement therapy; W23.0XXA Caught, crushed, jammed, or pinched between moving objects, initial encounter; Y92.009 Unspecified place in unspecified non-institutional (private) residence as the place of occurrence of the external cause
CPT/HCPCS: 73140; 99283; 12002; J2001

== ENCOUNTER → 2022-11-21 | Outpatient (CLI) | payer MEDICARE | END | disposition home or self-care (01) | LOC: LABPAT 11:21 | PROVIDERS: ATTEND Orthopaedic Surgery | DX: Z01.812 Encounter for preprocedural laboratory examination (principal) | CPT/HCPCS: 87070 ==

== ENCOUNTER 2022-11-27 05:32 | Day surgery (SDC) | payer MEDICARE ==
[2022-11-20 12:50] VITALS: BMI 26.7
[~2022-11-27 05:32] MED LIST: ACETAMINOPHEN TAB 500 MG TAB PO PRN; GABAPENTIN 300 MG CAP PO PRN; MELOXICAM 7.5 MG TAB PO PRN; TRANEXAMIC 1,000 MG/100ML-NACL 1,000 MG in SALINE 1 100ML.BAG IVPB PRN
[2022-11-27] MEDS ORDERED: DEXAMETHASONE SOD PHOSPHATE 4 MG/ML 1 ML VIAL IV ONE (05:42)
[2022-11-27] MEDS ORDERED: LIDOCAINE 1% (10MG/ML) FOR IV START INTRADERMA PRN (05:42)
[2022-11-27] MEDS ORDERED: ONDANSETRON 4 MG/2 ML VIAL IVP ONE ×2 (05:42→06:27)
[2022-11-27] MEDS ORDERED: LACTATED RINGERS 1,000 ML IV ONE ×2 (05:50→08:05)
[2022-11-27] MEDS ORDERED: GABAPENTIN 300 MG CAP PO ONE (06:27)
[2022-11-27] MEDS ORDERED: ACETAMINOPHEN TAB 500 MG TAB PO ONE (06:27)
[2022-11-27] MEDS ORDERED: DEXAMETHASONE SOD PHOSPHATE 4 MG/ML 1 ML VIAL IVP ONE (06:27)
[2022-11-27] MEDS ORDERED: MELOXICAM 7.5 MG TAB PO ONE (06:28)
[2022-11-27] MEDS ORDERED: MIDAZOLAM 2 MG/2 ML VIAL IVP ONE (06:40)
[2022-11-27] MEDS ORDERED: MIDAZOLAM 2 MG/2 ML VIAL ONE (06:58)
[2022-11-27] MEDS ORDERED: DEXAMETHASONE SOD PHOSPHATE 4 MG/ML 1 ML VIAL ONE (06:58)
[2022-11-27] MEDS ORDERED: KETAMINE HCL IN 0.9 % NACL 50 MG/5 ML SYRINGE ONE (06:58)
[2022-11-27] MEDS ORDERED: TRANEXAMIC 1,000 MG/100ML-NACL PREMIX BAG ONE (06:58)
[2022-11-27] MEDS ORDERED: HYDROmorphone (PF) 1 MG/ML ONE (06:58)
[2022-11-27] MEDS ORDERED: ROPIVACAINE 5 MG/ML 30 ML VIAL ONE (06:58)
[2022-11-27] MEDS ORDERED: PROPOFOL 10 MG/ML 20 ML VIAL IV ONE (06:58)
[2022-11-27] MEDS ORDERED: ROPIVACAINE 5 MG/ML 30 ML VIAL MISCELLANE ONE ×2 (07:00→08:10)
[2022-11-27] MEDS ORDERED: MIDAZOLAM 2 MG/2 ML VIAL IV PRN (07:00)
[2022-11-27] MEDS ORDERED: HYDROmorphone 0.5 MG/0.5 ML SYRINGE IVP PRN ×3 (07:00→08:45)
[2022-11-27] MEDS ORDERED: ceFAZolin 1,000 MG in SODIUM CHLORIDE 0.9% 1,000 ML IRRIGATION ONE (07:04)
--- NOTE | 2022-11-27 08:14 | P.OP ---
Date of Procedure: 11/27/22 Preoperative Diagnosis: Severe osteoarthritis right hip Postoperative Diagnosis: Severe osteoarthritis right hip Procedure(s) Performed: Right total hip arthroplasty with a direct anterior approach Implants: [employer] Polarstem standard size 6 with a collar [employer] R3, 3 hole hemispherical acetabular shell, 54 mm [employer] Reflection 6.5 mm cancellus screw, 25 mm 2 [employer] R3, XLPE 20 acetabular liner [employer] Oxinium femoral head 36 mm, +4 All components were press-fit. The articulation is Oxinium on polyethylene. Anesthesia: spinal Surgeon: Alex Nielsen Banking Attorney #1: Diamante Walton Estimated Blood Loss (ml): 150 Pathology: none sent Condition: stable Disposition: PACU Indications for Procedure: After failure of conservative treatment we discussed the surgical and nonsu rgical treatment options at length. Patient wishes to proceed with a total hip arthroplasty with a direct anterior approach. Complications specific to this procedure were discussed at length, including but not limited to infection, leg length discrepancy, dislocation, nerve injury, and fracture. Covid-19 was also discussed at length with the patient, and they are aware of the current policies and procedures. The patient was given the option of delaying surgery, but they elect to proceed knowing these risks. Patient is aware of all these complications and informed consent was obtained Operative Findings: The operative findings are consistent with severe osteoarthritis of the right hip Description of Procedure: The patient was seen and evaluated in the preoperative area and the consent was reviewed. The operative site was marked with a skin marker. The patient verified the procedure and operative site. A RAJINDER block was placed by anesthesia in the preoperative area. The patient was then brought to the operating room and given preoperative antibiotics intravenously. 1 g of Tranexamic acid was also given intravenously. A spinal anesthetic was administered by the anesthesia department. The patient was then placed on the [place] table with the bony prominences well-padded. The hip area was then prepped with a ChloraPrep solution and draped in the usual sterile fashion. A universal timeout was then performed, which confirmed the patient's name, surgical site, ALLERGIES, and procedure being performed on the consent. Next the incision site was located at 1 cm distal and 4 cm lateral to the anterior superior iliac spine. The skin and subcutaneous tissues were sharply incised. Incision was carefully dissected down to the fascia overlying the tensor fascia olivia muscle. This fascia was then incised in line with the muscle fibers. Care was taken to stay laterally in order to avoid injuring the lateral femoral cutaneous nerve. Next, using blunt finger dissection, the tensor fascia olivia muscle was dissected off its investing fascia. The muscle was then carefully retracted laterally with a cobra retractor over the lateral neck of the femur. Next, the circumflex vessels were identified and cauterized using the Aquamantis device. The anterior hip capsule was then exposed. The capsule was then opened and an inverted T fashion. The retractors were then placed intracapsularly. The retractors were maintained intracapsular throughout the procedure. The proximal femur was then visualized. Fluoroscopic x-rays were then taken in order to evaluate the preoperative leg lengths. A small amount of traction was placed on the leg. The femoral neck was then osteotomized at the appropriate level above the lesser trochanter. A small wedge of bone was then removed from the remaining femoral head. Next, using a corkscrew the femoral head was removed from the acetabulum. On gross visual inspection, the femoral head had complete loss of articular cartilage and multiple periarticular osteophytes. The femoral head was then measured. Attention was then turned to the acetabulum. The acetabulum was exposed and any remaining labrum was excised. Sequential reaming of the acetabulum was performed using fluoroscopic guidance until there was a good bed of bleeding cancellus bone. When the appropriate size was reached, a trial was then placed. The position and fit of the trial was checked with fluoroscopy. The trial was then removed. Then, using fluoroscopic guidance, the final implant was impacted at 20 of anteversion and 40 of abduction, and fully seated in the acetabulum. 2 screws were then placed in the acetabulum. Again fluoroscopy was used to check position of the screws. Next, the liner was then impacted, with a 20 elevated liner located in the anterior superior quadrant. Component locking was confirmed. Attention was then directed to the femur. With the aid of the [place] table, the femur was externally rotated to approximately 130, extended, and adducted under the opposite leg. A side hook was then placed under the proximal femur, and the side hook elevator was used to elevate the proximal femur while releasing the capsule. Retractors were then placed. A capsular release was performed, as well as a release of the conjoined tendon, which afforded excellent v isualization of the proximal femur. Next, a box osteotome was used to lateralize the proximal femur. A clinical material handler was then used to locate the femoral canal. Sequential broaching was then performed with appropriate size which afforded excellent fixation in the proximal femur. A trial was then placed with appropriate head and neck, and the hip was gently reduced with the aid of the [place] table. Fluoroscopy was then used to check position of the components, as well as to evaluate the leg lengths and offset. The leg lengths and offset were measured as closely as possible to ensure stability of the hip. The hip was then gently dislocated and the trials were then removed. Final implants were then impacted and the hip was again reduced. Final fluoroscopic x-rays confirmed that the components were in anatomic position. The leg lengths and offset were measured and were found to coincide with the trial measurements. The hip was also taken through range of motion, and found to be stable. The hip was then copiously irrigated with antibiotic solution with pulsatile lavage. The hip was then irrigated with Irrisept solution. The soft tissues were then injected with a ropivacaine solution. A second dose of 1 g of Tranexamic acid was also given intravenously. The fascia was then closed with 2-0 strata fix suture. The subcutaneous tissue was closed with 3-0 Vicryl. The subcuticular tissue was closed with 3-0 strata fix suture. The skin was then closed with Exofin skin glue. After the glue and dried, and Optifoam silver impregnated dressing was applied. The patient was t hen transferred to the recovery room in stable condition. The assistant director of plant operations MANFRED Riggins was required due to the complexity of surgery, and the need for skilled surgical appliances salesperson for positioning, draping, exposure, retraction, and closure of the wound.
[2022-11-27] MEDS ORDERED: MAGNESIUM HYDROXIDE 2,400 MG/30 ML CUP PO PRN (08:45)
[2022-11-27] MEDS ORDERED: ONDANSETRON 4 MG/2 ML VIAL IVP PRN (08:45)
[2022-11-27] MEDS ORDERED: NALOXONE 0.4 MG/ML 1 ML VIAL IV PRN (08:45)
[2022-11-27] MEDS ORDERED: HYDROcodone/APAP 7.5-325MG 1 EACH TAB PO PRN (08:47)
--- NOTE | 2022-11-27 09:11 | XR ---
Intraoperative/procedural fluoroscopic services were provided for right total hip arthroplasty. Total fluoroscopy time is 1.03 minutes with a total of 4 submitted images to PACS. Total DAP 3.5348 Gycm2. Please see the operative note for further details.
--- NOTE | 2022-11-27 09:12 | XR ---
EXAMINATION TYPE: XR Hip Limited RT DATE OF EXAM: 11/27/2022 9:07 AM INDICATION: Patient age:Male; 72 years old; Reason for study: Status post hip surgery, assess surgical alignment; PHH. COMPARISON: Right hip fluoroscopic images of the same date TECHNIQUE: The right hip was examined in the frontal projection. FINDINGS: Postsurgical changes from right total hip arthroplasty. There is associated soft tissue deandre ma and gas. Hardware appears intact with appropriate alignment on the single frontal image. No acute fracture or dislocation. IMPRESSION: Postsurgical changes from right total hip arthroplasty. Hardware appears intact with appropriate alig nment on the single frontal image.
[2022-11-27] MEDS ORDERED: HYDROmorphone 0.5 MG/0.5 ML SYRINGE IVP ONE (09:25)
--- NOTE | 2022-11-27 11:11 | P.ANPRN ---
Procedure Note - Anesthesia - Nerve Block Performed Right Donovan Single Time Out Performed: Yes Date of Procedure: 11/27/22 Procedure Start Time: 06:39 Procedure Stop Time: 06:43 Location of Patient: PreOp Indication: Acute Post-Operative Pain, Requested by Surgeon Sedation Type: Sedate with meaningful contact maintained Preparation: Sterile Prep Position: Supine Needle Types: Pajunk Needle Gauge: 21 Ultrasound used to visualize needle placement: Yes Ultrasound used to observe medication spread: Yes Blood Aspirated: No Pain Paresthesia on Injection Noted: No Resistance on Injection: Normal Image Stored and Saved: Yes Events: Uneventful and Well Tolerated (Ropivacaine 0.5% 25 mL plus dexamethasone 4 mg)
[2022-11-27] MEDS: LACTATED RINGERS 1,000 ML IV SCH (12:35)
[2022-11-27] MEDS: SODIUM CHLORIDE 0.9% 1,000 ML IV SCH (12:35)
[2022-11-27] MEDS: HYDROmorphone 0.5 MG/0.5 ML SYRINGE IVP PRN (14:11)
[2022-11-27] MEDS: HYDROcodone/APAP 7.5-325MG 1 EACH TAB PO PRN ×2 (17:33→23:18)
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
[2022-11-27] MEDS ORDERED: SENNOSIDES-DOCUSATE SODIUM 1 EACH TAB PO SCH (21:00)
[2022-11-27] MEDS: ASPIRIN 325 MG TAB PO SCH (22:34)
[2022-11-28] MEDS: SODIUM CHLORIDE 0.9% 1,000 ML IV SCH (01:24)
[2022-11-28] MEDS: LACTATED RINGERS 1,000 ML IV SCH (01:25)
[2022-11-28] MEDS: HYDROmorphone 0.5 MG/0.5 ML SYRINGE IVP PRN (01:41)
[2022-11-28] MEDS: HYDROcodone/APAP 7.5-325MG 1 EACH TAB PO PRN (05:50)
[2022-11-28] MEDS ORDERED: LEVOTHYROXINE 125 MCG TAB PO SCH (06:30)
[2022-11-28] MEDS: ASPIRIN 325 MG TAB PO SCH (08:15)
[2022-11-28 08:33] VITALS: BP 106/62; PULSE 63; RESP 17; TEMP 98.8
--- NOTE | 2022-11-28 09:52 | P.DS ---
Providers Attending physician: Alex Nielsen Consults: 11/27/22 08:45 Consult Physician Routine Consulting Provider: Toby Drummond Consult Reason/Comments: medical management Do you want consulting provider notified?: Yes Primary care physician: Yoel Olsen - Discharge Diagnosis(es) (1) Osteoarthritis of right hip Current Visit: Yes Status: Acute (2) S/P total right hip arthroplasty Current Visit: Yes Status: Acute Hospital Course: This is a 72-year-old male with known history of degenerative arthritis of the right hip. The patient presented for evaluation as an outpatient. After discussion and consideration patient elects to proceed with total hip arthroplasty. The patient is seen preoperatively by Dr. Nielsen and medically cleared for surgery by their primary care physician. Patient is admitted to [facility] on 11/27/2022 for total hip arthroplasty. The procedure is performed without complication or sequelae. The patient is doing well postoperatively. Labs and vital signs are stable on day of discharge. On day of discharge patient's hip incision is healing well. There is minimal erythema. There is no drainage noted at this time. There is minimal soft tissue swelling to the hip and thigh. Patient has full foot and ankle motion without difficulty or pain. Calf is soft and nontender to palpation. Neurovascular status to the right lower extremity is intact. Patient is discharged home in good condition. Please see [facility] rec for accurate list of home medications. Plan - Discharge Summary Discharge Rx Participant: No New Discharge Prescriptions: New Aspirin 325 mg PO BID #60 tab Sennosides [Senokot] 2 tab PO DAILY PRN #60 tablet PRN Reason: Constipation HYDROcodone/APAP 7.5-325MG [[place] 7.5-325] 1 - 2 tab PO Q6H PRN #32 tab PRN Reason: Pain Continue Levothyroxine Sodium 125 mcg PO QAM Discharge Medication List Levothyroxine Sodium 125 mcg PO QAM 11/20/22 [History] Aspirin 325 mg PO BID #60 tab 11/27/22 [Rx] HYDROcodone/APAP 7.5-325MG [[place] 7.5-325] 1 - 2 tab PO Q6H PRN #32 tab 11/27/22 [Rx] Sennosides [Senokot] 2 tab PO DAILY PRN #60 tablet 11/27/22 [Rx] Follow up Appointment(s)/Referral(s): [facility] [[facility]] - 1-2 Days ([facility] will call you to schedule your in home physical therapy visits. ) Alex Nielsen DO [Doctor of Osteopathic Medicine] - 2 Weeks Activity/Diet/Wound Care/Special Instructions: Weightbearing as tolerated with walker. Leave dressing intact. Dressing may be removed by home care nurse or by patient in 7 days. Then change dressing twice daily until follow up. May shower with initial dressing intact and after removal. If dressing become saturated, please remove. Please take aspirin 325mg twice daily for 30 days to prevent blood clots. Recommend use of compression stockings daily until follow up to help prevent swelling and blood clots. May remove at night before sleeping. Please follow-up with [facility] in 2 weeks and call with any questions or concerns, . Discharge Disposition: HOME WITH HOME HEALTH SERVICES
[2022-11-28 11:01] LABS: Basophils # (A) 0.01 X 10*3/uL (0.00-0.10); Basophils % (A) 0.1 %; Eosinophils # (A) 0.07 X 10*3/uL (0.04-0.35); Eosinophils % (A) 0.8 %; HCT 37.5 % (39.6-50.0); HGB 12.2 d/dL (13.0-17.0); Lymphocytes % (A) 15.6 %; MCH 30.9 pg (27.0-32.0); MCHC 32.5 d/dL (32.0-37.0); MCV 94.9 FL (80.0-97.0); Mean Platelet Volume 10.3 FL (9.5-12.2); Monocytes # (A) 1.36 X 10*3/uL (0.20-1.00); Monocytes % (A) 15.2 %; NRBC Per 100 WBC 0 X 10*3/uL (0.00-0.01); Neutrophils # (A) 6.09 X 10*3/uL (1.80-7.70); Neutrophils % (A) 68.1 %; Platelet Count 202 X 10*3/uL (140-440); RBC 3.95 X 10*6/uL (4.40-5.60); RDW 13.1 % (11.5-14.5); WBC 8.95 X 10*3/uL (4.50-10.00)
[2022-11-28 11:13] LABS: BUN/Creat Ratio 16.91 Ratio (12.00-20.00); Blood Urea Nitrogen 18.6 mg/dL (9.0-27.0); Calcium 8.6 mg/dL (8.7-10.3); Carbon Dioxide 26.7 mmol/L (21.6-31.8); Chloride 104 mmol/L (96-109); Glucose 111 mg/dL (70-110); Potassium 4.3 mmol/L (3.5-5.5); Sodium 139 mmol/L (135-145)
--- NOTE | 2022-11-28 14:55 | P.PN ---
Subjective Progress Note Date: 11/28/22 No new copmlaints. Pt medically cleared for discharge. Gen: in no apparent distress, resting comfortably in bed Eyes: PERRL, no scleral injection or icterus HENT: normocephalic, atraumatic, good hearing acuity, moist mucous membranes Neck: no tracheal deviation, full range of motion Resp: good air exchange, breathing comfortably with no accessory muscle use, no tactile fremitus CVS: good distal perfusion x 4, no pitting edema GI: soft, NTTP, ND, no hepatosplenomegaly : no suprapubic tenderness, no CVAT, camacho catheter not present MSK: no clubbing, no cyanosis, no noted contractures of extremities Skin: no noted rashes, petechiae; temperature of skin is appropriate Neuro: moving all extremities without signs of weakness, CN II-XII intact Psych: cooperative, euthymic mood, insight and judgment intact Assessment/plan: Hypothyroidism -Resume levothyroxine 125 g daily Total hip arthroplasty, status post -Care per primary team -DVT prophylaxis per primary team -Obtain CBC, basic metabolic panel tomorrow morning Patient is full code Objective - Vital Signs Vital signs: Vital Signs Temp 98.8 F 11/28/22 06:45 Pulse 63 11/28/22 06:45 Resp 17 11/28/22 06:45 BP 106/62 11/28/22 06:45 Pulse Ox 97 11/28/22 06:45 FiO2 Intake & Output 11/27/22 11/28/22 11/28/22 18:59 06:59 18:59 Intake Total 2049 Output Total 150 Balance 1899 Weight 87.8 kg Intake: IV 2049 Output: Estimated Blood Loss 150 Other: # Voids 3 - Labs CBC & Chem 7: 11/28/22 06:26 11/28/22 06:26 Labs: Abnormal Lab Results - Last 24 Hours (Table) 11/28/22 11/28/22 Range/Units 06:26 06:26 RBC 3.95 L (4.40-5.60) X 10*6/uL Hgb 12.2 L (13.0-17.0) d/dL Hct 37.5 L (39.6-50.0) % Monocytes # 1.36 H (0.20-1.00) X 10*3/uL Glucose 111 H (70-110) mg/dL Calcium 8.6 L (8.7-10.3) mg/dL
== END 2022-11-28 11:51 | disposition home health service (06) ==
LOC: OR 05:32 → 4SSUR 08:39 → OR 11-28 11:51
PROVIDERS: ATTEND Orthopaedic Surgery
DX: M16.11 Unilateral primary osteoarthritis, right hip (principal); G89.18 Other acute postprocedural pain; E03.9 Hypothyroidism, unspecified; Z85.850 Personal history of malignant neoplasm of thyroid; Z85.828 Personal history of other malignant neoplasm of skin; Z87.891 Personal history of nicotine dependence; Z79.890 Hormone replacement therapy; Z79.82 Long term (current) use of aspirin; Z83.3 Family history of diabetes mellitus
CPT/HCPCS: 97161; 97166; 64447; 80048; 85025; 73501; 27130; C1776; J2250; J1100; J0690 ×2; J2405; J2795; J1170 ×2

== ENCOUNTER → 2023-07-26 | Outpatient (CLI) | payer MEDICARE | END | disposition home or self-care (01) | LOC: LABWHC1 16:18 | PROVIDERS: ATTEND Urology | DX: C61 Malignant neoplasm of prostate (principal) | CPT/HCPCS: 36415; 84153 ==

== ENCOUNTER → 2024-07-30 | Outpatient (CLI) | payer MEDICARE | END | disposition home or self-care (01) | LOC: LABWHC1 12:57 | PROVIDERS: ATTEND Urology | DX: C61 Malignant neoplasm of prostate (principal) | CPT/HCPCS: 36415; 84153 ==